=== PATIENT | female | born 2000 | race Caucasian/White ===

== ENCOUNTER 2023-11-20 11:39 | Emergency (ER) | payer OTHER, SELFPAY ==
[2023-11-20 11:50] VITALS: BP 110/63; PULSE 92; RESP 20; TEMP 37.2; O2SAT 100
--- NOTE | 2023-11-20 12:29 | ED.URI ---
HPI - URI/Sore Throat General Chief Complaint: Upper Respiratory Infection Stated Complaint: cough/congestion Time Seen by Provider: 11/20/23 12:15 Source: patient Mode of arrival: ambulatory Limitations: no limitations History of Present Illness HPI Narrative: 23 year old female who is 14 weeks presents to [facility] care with complaints of cough for 2 days with some sinus congestion and drainage. She reports that she has been taking some Robitussin for her cough.Patient reports no known fevers, headaches, body aches or any chills or sweats. Reports that mother had been ill and she was checked for strep COVID and RSV and were all negative. MD elicited complaint: cough, rhinorrhea, nasal congestion and other (14 weeks ) Onset (ago): day(s) (2) Severity: mild Able to tolerate fluids by mouth: Yes Treatments prior to arrival: other (Robitussin) Review of Systems Review of Systems: CONSTITUTIONAL: Denies malaise, chills, sweats, or fever. EYES: Denies visual changes, redness, or discharge. ENT: Reports rhinorrhea, congestion, sinus pain,no otalgia and no sore throat. CARDIOVASCULAR: Denies chest pain, palpitations, or edema. RESPIRATORY: Reports cough.? Denies dyspnea. GASTROINTESTINAL: Denies abdominal pain, nausea, vomiting, diarrhea SKIN: Denies rash or itching. MUSCULOSKELETAL: Denies myalgia. NEUROLOGIC: Denies headache. All systems reviewed & are unremarkable except as noted in HPI and below PMFSH Past Medical History Medical History (Updated 11/21/23 @ 19:15 by Gladys Yoder NP) No pertinent past medical history Surgical History Surgical History (Updated 11/21/23 @ 19:11 by Gladys Yoder NP) No history of previous surgery Social History Social History (Updated 11/21/23 @ 19:10 by Gladys Yoder NP) Smoking packs per day: 0.5 Smoking cigarettes per day: 10.0 Smoking status: Current every day smoker Tobacco type: cigarettes Alcohol intake: former Alcohol use details: not since Substance use type: does not use Living arrangements: with family Gender identity (if verbalized by the patient): Female Comments At time of signature, agree with nursing past medical, surgical, social and family history. There is no relevant family history pertinent to the presenting complaint Exam Narrative: GENERAL: Well-appearing, well-nourished, and in no acute distress. HEAD: Normocephalic EYES: PERRLA, conjunctivae clear ENT: Nares clear, turbinates edematous and erythematous, clear discharge. Mucous membranes moist. TM pearly delgadillo with dull light reflex bilaterally; no tragal tenderness. Oropharynx erythematous without lesions. Tonsils not enlarged and without exudate, no drooling, no hoarseness, no trismus, uvula midline.some post nasal drainage NECK: Supple. No lymphadenopathy CHEST: Clear to auscultation, breath sounds equal. No wheezing, rhonchi, rales, or stridor. No respiratory distress, speaks in full sentences.no tachypnea, SAO2 100% on room air HEART: Regular rate and rhythm. No murmur heard. SKIN: Warm, dry, no rash. NEURO: Alert and oriented x3. PSYCH: Normal mood and affect Course Course Emergency Course: Patient is aware of diagnosis, understands and agrees to treatment plan.? Anticipatory guidance given.? Patient agrees to follow-up as directed and is aware of reasons to seek care at the emergency department. Portions of this record may have been created with voice recognition software Level of Care: Express Care Visit Vital Signs Vital signs: Vital Signs Temperature 37.2 C 11/20/23 11:50 Pulse Rate 92 11/20/23 11:50 Respiratory Rate 11/20/23 11:50 Blood Pressure 110/63 11/20/23 11:50 Pulse Oximetry 100 11/20/23 11:50 Oxygen Delivery Room Air 11/20/23 11:50 Temperature 37.2 C 11/20/23 11:50 Pulse Rate 92 11/20/23 11:50 Respiratory Rate 11/20/23 11:50 Blood Pressure 1
== END 2023-11-20 12:47 | disposition home or self-care (01) ==
PROVIDERS: Emergency Provider Registered Nurse; PCP Family Medicine
DX: O99.891 Other specified diseases and conditions complicating pregnancy (principal); Z3A.14 14 weeks gestation of pregnancy; R05.9 Cough, unspecified; R09.81 Nasal congestion; O99.331 Smoking (tobacco) complicating pregnancy, first trimester; F17.210 Nicotine dependence, cigarettes, uncomplicated
CPT/HCPCS: 99202; G0463

== ENCOUNTER 2024-02-10 14:12 | Emergency (ER) | payer OTHER, SELFPAY ==
[2024-02-10 14:25] VITALS: BP 111/65; PULSE 102; RESP 15; TEMP 36.6; O2SAT 98
--- NOTE | 2024-02-10 14:48 | ED.SKABFB ---
HPI - Skin/Abscess/Foreign Bdy General Chief complaint: Skin/Abscess/Foreign Body Stated complaint: Cat Scratch/Right Ankle Time Seen by Provider: 02/10/24 14:29 Source: patient, RN notes reviewed and old records reviewed Mode of arrival: ambulatory Limitations: no limitations History of Present Illness HPI narrative: 23-year-old female to Express Care with complaint of cat scratch to posterior right foot and heel. Patient states she has soaked it at home and has kept area clean and dry; states that surrounding area has become increasingly red, tender and warm to touch.Patient reports that her cat is up to date on vaccinations. Patient states she is currently . Patient denies fever, nausea, joint pain, body aches. Patient resting comfortably in exam room in no acute distress. Related Data Home Medications Medication Instructions Recorded Confirmed aspirin 81 mg tablet,delayed mg 02/10/24 release cholecalciferol (vitamin D3) 25 02/10/24 mcg (1,000 unit) tablet no.118-ferrous fumarate tablet 02/10/24 29 mg-folic acid 1 mg chewable tablet (Se-Jody 19 Chewable) Allergies Allergy/AdvReac Type Severity Reaction Status Date / Time No Known Allergies Allergy Verified 02/10/24 14:43 Review of Systems Review of Systems: All systems reviewed & are unremarkable except as noted in HPI and below Constitutional: Constitutional: Reports no additional constitutional complaints Eyes: Eyes: Reports no additional eye complaints ENT: Reports system reviewed and no additional complaints, except as documented Cardiovascular: Cardiovascular: Reports no additional cardiovascular complaints, Denies chest pain and Denies dyspnea Respiratory: Respiratory: Reports no additional respiratory complaints, Denies cough and Denies dyspnea Musculoskeletal: Musculoskeletal: Reports no additional musculoskeletal complaints Integumentary/Breasts: Skin/Breast: Reports as per HPI and Reports wounds ( Right posterior heel) Neurologic: Reports system reviewed and no additional complaints, except as documented Psychiatric: Psychiatric: Reports no additional psychiatric complaints [facility] Past Medical History Medical History No pertinent past medical history Surgical History Surgical History No history of previous surgery Social History Social History Smoking packs per day: 0.5 Smoking cigarettes per day: 10.0 Smoking status: Current every day smoker Tobacco type: cigarettes Alcohol intake: former Alcohol use details: not since Substance use type: does not use Living arrangements: with family Gender identity (if verbalized by the patient): Female Comments At the time of my signature, I reviewed and agree with the nursing past medical, surgical, social, and family history. There is no relevant family history pertinent to the patient complaint. Exam Const: General: cooperative, healthy appearing, comfortable, no acute distress, alert and well nourished Nutritional Appearance: well nourished Orientation/consciousness: patient oriented x3 Limitations: no limitations HENMT: Head: normal to inspection Ears: external ears normal Face/Nose/Sinus: Normal external nose present, Normal nares present, normal facial exam, No erythema and No edema Face and sinus: normal facial exam, no erythema and no edema Mouth: Yes Normal oral and palatal mucosa present Eyes: General: appearance normal, both eyes and all related structures Neck: Neck: normal visual inspection, full ROM and no meningeal signs Lymphatic: no lymphadenopathy noted and no lymphedema noted Chest: Chest palpation & inspection: normal inspection of the chest Resp: Effort & Inspection: normal respiratory effort and able to speak in complete sentences Cardio: Jugular venous distension: no JVD Rate: regular rate Back/Spine/Pelvis: Cervical Spine: cervical ROM normal Skin: General skin exam: normal color and wounds noted Wounds: wounds noted puncture wound right posterior heel without odor and with surrounding erythema; no drainage and not open Neuro: General: patient oriented x3, gait normal, moves all extremities and no meningeal signs Speech: normal speech Gait exam (Neuro): Normal gait present Extrem: General: normal to inspection, full ROM and capillary refill normal Psych: Appearance: grossly normal and well kempt Course Course Emergency Course: Some parts of this dictation were generated by voice recognition software and may contain typographical and/or grammatical inaccuracies. Level of Care: Express Care Visit Vital Signs Vital signs: Vital Signs Temperature 36.6 C 02/10/24 14:25 Pulse Rate 102 H 02/10/24 14:25 Respiratory Rate 15 02/10/24 14:25 Blood Pressure 111/65 02/10/24 14:25 Pulse Oximetry 98 02/10/24 14:25 Temperature 36.6 C 11/14/24 14:25 Pulse Rate 102 H 02/10/24 14:25 Respiratory Rate 15 02/10/24 14:25 Blood Pressure 111/65 02/10/24 14:25 Pulse Oximetry 98 02/10/24 14:25 reviewed MDM - Skin/Abscess/Foreign Bdy MDM Narrative Medical decision making narrative: 23-year-old female to Express Care with complaint of cat scratch to posterior right foot and heel. Patient states she has soaked it at home and has kept area clean and dry; states that surrounding area has become increasingly red, tender and warm to touch.Patient reports that her cat is up to date on vaccinations. Patient states she is currently . Patient denies fever, nausea, joint pain, body aches. Patient resting comfortably in exam room in no acute distress. on exam, puncture wound noted to right posterior heel with 1.5 cm surrounding erythema, tenderness. Exam otherwise unremarkable. Patient is sitting comfortably in exam room nontoxic in appearance. Patient appropriate for outpatient treatment and follow-up. Discharge instructions reviewed with patient, as well as provided in writing per nursing staff. The instructions also include specific and strict return/GO TO THE ER as well as f/u information. All questions have been answered, and the patient deny any further questions with discharge and discharge plan. Some parts of this dictation were generated by voice recognition software and may contain typographical and/or grammatical inaccuracies. Differential Diagnosis Differential diagnosis: Likely abscess of skin or subcutaneous tissue, viral exanthem, dermatophytosis, urticaria, herpes zoster, allergic reaction to drug, cellulitis, eczema, insect bites, impetigo and contact dermatitis Discharge Plan Discharge Clinical Impression: Cat scratch Patient Disposition: Home, Self-Care Condition: Stable Instructions: Acute Wounds (ED) Additional Instructions: please review detached instructions regarding acute wounds and suggestions please finish entire course of antibiotic treatment for new or worsening symptoms please go directly to the emergency department Prescriptions: New amoxicillin-pot clavulanate 875-125 mg tablet 1 tablet PO Q12H Qty: 20 0RF No Action aspirin 81 mg tablet,delayed release (DR/EC) cholecalciferol (vitamin D3) 25 mcg (1,000 unit) tablet Se-Jody 19 Chewable 29 mg iron- 1 mg tablet,chewable Follow-up/Referrals: Shayy,Simi Esquivel MD [Primary Care Provider] -
== END 2024-02-10 15:09 | disposition home or self-care (01) ==
PROVIDERS: Emergency Provider Nurse Practitioner Family; PCP Family Medicine
DX: O26.899 Other specified pregnancy related conditions, unspecified trimester (principal); S90.811A Abrasion, right foot, initial encounter; W55.03XA Scratched by cat, initial encounter
CPT/HCPCS: 99213; G0463